=== PATIENT | female | born 1980 | race Caucasian/White ===

== ENCOUNTER 2017-01-15 08:21 | Emergency (ER) | payer SELFPAY ==
[2017-01-15 08:32] VITALS: BP 105/80; TEMP 99.2; O2SAT 96
[2017-01-15] MEDS ORDERED: predniSONE 20 MG TAB PO ONE (08:56)
[2017-01-15] MEDS ORDERED: AZITHROMYCIN 250 MG TAB PO ONE (08:56)
--- NOTE | 2017-01-15 08:59 | ED.PDOC ---
History of Present Illness - General Chief Complaint: Respiratory Problem Stated Complaint: Cough, congestion Time Seen by Provider: 01/15/17 08:28 Source: patient - History of Present Illness Initial Comments: the patient is a 36-year-old female presenting to the emergency room secondary to 3 weeks of progressive cough with a mildly productive sputum. For the last 24-48 hours she has had some left-sided chest pain with movement, deep breathing and coughing. No definite fevers. She has smoked for quite a period of time and has had several episodes of bronchitis related. She does not take any daily medications. No real shortness of breath. No syncope or near syncope. Timing/Duration: constant, getting worse Severity: moderate Improving Factors: nothing Worsening Factors: nothing Associated Symptoms: chest pain, cough Allergies/Adverse Reactions: Allergies NO KNOWN ALLERGY Allergy (Verified 01/15/17 08:34) Home Medications: Ambulatory Orders Azithromycin 500 mg PO DAILY #5 tab 01/15/17 Review of Systems - Review of Systems Constitutional: States: malaise EENTM: States: nose congestion - mild Respiratory: States: cough Cardiology: States: chest pain Gastrointestinal/Abdominal: States: no symptoms reported Genitourinary: States: no symptoms reported Musculoskeletal: States: no symptoms reported Skin: States: no symptoms reported Neurological: States: no symptoms reported Endocrine: States: no symptoms reported All other Systems: No Change from Baseline Past Medical History (General) - Patient Medical History Hx Stroke: No Hx Congestive Heart Failure: No Hx Diabetes: No Hx MRSA: No Surgical History: appendectomy, other - Vaccination History Hx Influenza Vaccination: No Hx Pneumococcal Vaccination: No - Social History Hx Tobacco Use: Yes - Female History Patient is a Female of Child Bearing Age (10 -59 yrs old): Yes Patient : No Family Medical History - Family History Mother Living Status: Still Living Hx Family Diabetes: Yes - Grandmother - dm Physical Exam - Physical Exam General Appearance: Alert, Comfortable, No apparent distress Eye Exam: bilateral normal Ears, Nose, Throat: hearing grossly normal, normal ENT inspection, normal pharynx Neck: full range of motion, supple, normal inspection Respiratory: normal breath sounds, no respiratory distress, no accessory muscle use, other - very mild left lower posterior rails. She does have some discomfort to palpation over her leftlateral chest wall. No obvious deformity. No crepitus. No bruising. Cardiovascular/Chest: normal peripheral pulses, regular rate, rhythm, no edema Peripheral Pulses: radial,right: 2+, radial,left: 2+ Gastrointestinal/Abdominal: non tender, soft Rectal Exam: deferred Back Exam: normal inspection, no CVA tenderness, no vertebral tenderness Extremity: normal range of motion, non-tender, normal inspection, no pedal edema , normal capillary refill Neurologic: [employer] II-XII nml as tested, alert, normal mood/affect, oriented x 3 Skin Exam: normal color Comments: Vital Signs - 24 hr 01/15/17 08:28 Temperature 99.2 F Pulse Rate [ 97 H Left Radial] Respiratory 20 Rate Blood Pressure 105/80 [Left Arm] O2 Sat by Pulse 96 Oximetry Progress - Progress Progress: 01/15/17 08:59 the patient is a 36-year-old female presenting to the emergency room with a progressive cough for the last 3 weeks along with some left lateral chest pain that is likely muscular strain from coughing. This is likely a mild COPD exacerbation. The patient is being given a dose of prednisone here and will be placed on azithromycin for the next 5 days. She needs to stop smoking in order to clear up this flare. A humidifier at night may also help to thin secretions so that she does not have a cough so hard. Mucinex twice daily may also help. Motrin 2-3 times daily may also help. er warnings are given for any significant worsening. Vital signs are reassuring. X-ray of the chest shows no definite large lobar pneumonia but there does appear to be a very mild basilar infiltrate vs atelectasis on the left. ER warnings were given for any worsening. She should follow up with her primary care doctor next week. Departure - Departure Clinical Impression: Exacerbation of chronic bronchiolitis Disposition: Discharge to Home or Self Care Condition: Fair Departure Forms: ED Discharge - Pt. Copy, Patient Portal Self Enrollment Instructions: DI for Chronic Obstructive Pulmonary Disease Diet: regular diet Activity: increase activity as tolerated Referrals: Marybeth Conrad NP [Primary Care Provider] - 1-2 Weeks Prescriptions: Azithromycin 500 mg PO DAILY #5 tab Home Medications: Ambulatory Orders Azithromycin 500 mg PO DAILY #5 tab 01/15/17 Additional Instructions: the patient is a 36-year-old female presenting to the emergency room with a progressive cough for the last 3 weeks along with some left lateral chest pain that is likely muscular strain from coughing. This is likely a mild COPD exacerbation. The patient is being given a dose of prednisone here and will be placed on azithromycin for the next 5 days. She needs to stop smoking in order to clear up this flare. A humidifier at night may also help to thin secretions so that she does not have a cough so hard. Mucinex twice daily may also help. Motrin 2-3 times daily may also help. er warnings are given for any significant worsening. Vital signs are reassuring. X-ray of the chest shows no definite large lobar pneumonia but there does appear to be a very mild basilar infiltrate vs atelectasis on the left. ER warnings were given for any worsening. She should follow up with her primary care doctor next week.
--- NOTE | 2017-01-15 09:02 | RAD ---
Procedure: XR CHEST 2 VIEWS Exam Date: 01/15/2017 8:38 AM CDT Ordering Provider: Nehemiah Bartlett Clinical Indication: cough 3w c left chest pain Comparison: None Findings: The lungs are clear and well-aerated. No pleural effusion or pneumothorax. Cardiac silhouette is normal in size. Incidental note is made of pectus excavatum. Impression: No acute pulmonary process. Electronically signed by: Sulema Corbett MD 01/15/2017 9:01 AM CDT
== END 2017-01-15 09:16 | disposition home or self-care (01) ==
LOC: ER 08:21
DX: J44.1 Chronic obstructive pulmonary disease with (acute) exacerbation (principal); Z87.891 Personal history of nicotine dependence
CPT/HCPCS: 71020; J7512; Q0144